=== PATIENT | female | born 1985 | race Caucasian/White ===

== ENCOUNTER → 2016-06-26 | Outpatient (CLI) | payer OTHER | LOC: FIMAGING 13:27 | PROVIDERS: ATTEND Midwife | DX: Z32.01 Encounter for pregnancy test, result positive (principal); N93.9 Abnormal uterine and vaginal bleeding, unspecified ==

== ENCOUNTER 2017-07-31 01:03 | Inpatient (IN) | payer OTHER ==
[2017-07-31] MEDS ORDERED: EPSOM SALT 454 GM TP PRN (01:39)
[2017-07-31] MEDS ORDERED: OXYTOCIN 20 UNIT in LR 1,000 ML IV PRN (01:39)
[2017-07-31] MEDS ORDERED: TERBUTALINE SULFATE 1 MG/ML VIAL IV PRN (01:39)
[2017-07-31] MEDS ORDERED: OLIVE OIL 118 ML BTL MISC PRN (01:39)
[2017-07-31] MEDS ORDERED: LR 1,000 ML IV PRN (01:39)
[2017-07-31] MEDS ORDERED: MISOPROSTOL 200 MCG TAB PR PRN (01:39)
[2017-07-31 01:54] LABS: PLATELET COUNT 208 10^3/uL (150-400)
[2017-07-31] MEDS ORDERED: LIDOCAINE 1% 300 MG/30 ML SDV ONE (02:14)
[2017-07-31] MEDS ORDERED: OXYTOCIN 10 UNIT/ML VIAL ONE (02:15)
[2017-07-31] MEDS ORDERED: AMMONIA AROMATIC 1 EACH AMP IH ONE (02:15)
[2017-07-31] MEDS ORDERED: MISOPROSTOL 200 MCG TAB ONE (02:15)
[2017-07-31] MEDS ORDERED: OLIVE OIL 118 ML BTL ONE (02:15)
[2017-07-31] MEDS ORDERED: TERBUTALINE SULFATE 1 MG/ML VIAL ONE (02:15)
[2017-07-31] MEDS: IBUPROFEN 600 MG TAB PO PRN ×2 (02:54→10:41)
--- NOTE | 2017-07-31 03:04 | PDGENHP ---
History and Physical History and Physical: HPI: Patient is a 32 yo G 3 P1 at 39.1 weeks EGA who presents to L&D with complaints of regular painful contractions that started several hours ago. Baby has been active. She denies LOF or VB. Has had some light bloody show. EDC: 08/05/2017 which is based on LMP: 10/29/2016 which is known and consistent with Ultrasound at 9 weeks. Her is complicated by: -mild depression/anxiety- not medicated, see's a therapist, well controlled -marijuana use 1st trimester for nausea appetite- states stopped by 9 weeks Review of Systems: Constitutional: Denies any fever, chills, or fatigue HEENT: denies any visual changes, difficulty swallowing, hearing loss Cardiovascular: Denies any chest pain, palpitations, leg swelling Respiratory: denies any cough, wheezing, or shortness of breathe GI: Denies any nausea, vomiting, diarrhea, constipation : denies any dysuria, urgency, frequency, vaginal bleeding Musculoskeletal: denies any muscle or bone pain Skin: denies any rashes Neuro: denies any headache, seizures, lightheadedness, dizziness, or loss of consciousness Psychiatric: denies any depression, anxiety, or SI/HI thoughts HISTORY: Previous OB history: 03/20, ectopic 05/22 Past medical history: mild anxiety/depression -no meds, just therapy Past surgical history: none Medications: PNV Allergies (list reaction): NKDA LABS: Rh: A pos ABS: Neg Rubella: Immune HbsAg: NR HIV: NR VDRL: NR 1hr: 109 GC: Neg Chlamydia: Neg Pap: Normal GBS: neg PHYSICAL EXAM: Constitutional: WN, A&Ox3 HEENT: normocephalic atraumatic, supple Heart: RRR, no murmur Chest: CTA-B Abdomen: Soft, nontender, gravid SVE: 7-8/90/-1 BBOW Extremities: mild lower ext edema, negative jung's sign Neuro: grossly normal Psych: normal affect assessment: Reassuring FHTs, baseline 130s +accels, no decels, moderate variability Contractions: toco q 2-3 Assessment: 1) 32 yo G 3 P 2 with IUP@ 39.1 2) active labor 3) GBS neg 4) Cat 1 FHR tracing Plan: 1) Admit to L&D 2) IV, CBC, type and screen 3) intermittent monitoring per protocol 4) Diet as tolerated 5) anticipate
[2017-07-31] MEDS ORDERED: ACETAMINOPHEN 325 MG TAB PO PRN (03:05)
[2017-07-31] MEDS ORDERED: HYDROCORTISONE 0.5% CREAM TP PRN (03:05)
[2017-07-31] MEDS ORDERED: DOCUSATE SODIUM 100 MG CAP PO PRN (03:05)
[2017-07-31] MEDS ORDERED: SIMETHICONE 80 MG TAB CHEW PO PRN (03:05)
--- NOTE | 2017-07-31 03:11 | OBDEL ---
Info Type: Vaginal Presentation at Delivery: Vertex L&D Analgesia/Anesthesia Type: Local GBS+: No Intrapartum Medications: Generic Name Dose Route Start Last Admin Trade Name Freq PRN Reason Stop Dose Admin Ibuprofen 600 mg 07/31/17 01:39 07/31/17 02:54 Motrin PO 01/27/18 01:38 600 mg Q6HRS PRN Administration post , inflammation Indications for Delivery: Spontaneous Labor Vaginal Delivery - Delivery Provider Delivery Physician/CNM: Fanny Jefferson Proctoring Provider: Mary Marshall - Labor and Delivery Onset of Contractions Date: 07/30/17 Onset of Contractions Time: 21:45 Onset of Contractions Type: Spontaneous Rupture of Membranes Date: 07/31/17 Rupture of Membranes Time: 02:23 Rupture of Membranes Type: Spontaneous Amniotic Fluid Color: Clear Dilation Complete Date: 07/31/17 Dilation Complete Time: 02:21 Placenta Delivery Date: 07/31/17 Placenta Delivery Time: 02:29 Total Hours of Labor: 4 Data CHARLENE: 08/06/17 Gestational Age: 39 week(s) and 1 day(s) [place] Delivery Date: 07/31/17 Delivery Time: 02:23 Sex of Infant: Male Score (1 Min): 8 Score (5 Min): 8 ICD10 Worksheet Patient Problems: Problems Problem Status Onset Vaginal delivery Acute SROM (spontaneous rupture of membranes) Acute - ICD10 Problem Qualifiers (1) Vaginal delivery
[2017-07-31] MEDS: HYDROCODONE/APAP 5/325 TAB PO PRN ×2 (03:45→08:28)
--- NOTE | 2017-07-31 09:30 | OBPP ---
Progress Note Assessment/Plan: Assessment: 32 yo 7 hr s/p , doing well, desires homegoing today Plan: Will dc to home this afternoon. Reviewed signs of pp depression. Routine pp cares reviewed. See dc summary. 07/31/17 09:25 Subjective/ Course: 07/31/17 09:26 Doing well. Really desires going home this afternoon - has a 2.5 year old at home. Is fatigued but wants to go home. Ate breakfast. Has voided without difficulty. going well. Objective: 07/31/17 01:30 Patient ABO/Rh A POSITIVE 07/31/17 01:30 Temp Pulse Resp BP Pulse Ox 36.8 C 78 78 H 120/77 94 07/31/17 05:43 07/31/17 05:43 07/31/17 05:43 07/31/17 05:43 07/31/17 05:43 gen - pleasant, NAD abd - soft, fundus firm and NT u-3 ext - calves NT, trace edema Uterine Position/Fundal Height: Umbilicus -2 Uterine Tone: Firm
--- NOTE | 2017-07-31 10:13 | OBGCSDC ---
General Delivery Information - General Info : 3 Para: 2 Abortions: 0 Type: Vaginal L&D Analgesia/Anesthesia Type: Local Admission Date: 07/31/17 Labs: Patient ABO/Rh A POSITIVE 07/31/17 01:30 Hct 38.1 % (38.0-47.0) 07/31/17 01:30 - Hospital Course Antepartum: 07/31/17 10:01 Came in and delivered without complication. : 07/31/17 09:26 Doing well. Really desires going home this afternoon - has a 2.5 year old at home. Is fatigued but wants to go home. Ate breakfast. Has voided without difficulty. going well. Vaginal - Delivery Provider Delivery Physician/CNM: Fanny Jefferson - Diagnosis Labor: Spontaneous Rupture of Membranes Type: Spontaneous Amniotic Fluid Color: Clear Conesus Data CHARLENE: 08/06/17 Gestational Age: 39 week(s) and 1 day(s) Ramsey Delivery Date: 07/31/17 Delivery Time: 02:23 Sex of : Male Weight (gm): 3290 g Score (1 Min): 8 Score (5 Min): 8 Discharge Information - Discharge Information Prescriptions: Hydrocodone/APAP 5/325 [Etoile 5/325 (*)] 1 - 2 tab PO Q4HRS PRN #10 tab PRN Reason: Pain, Moderate Condition: Good
[2017-07-31 12:49] VITALS: BP 117/71
== END 2017-07-31 15:11 | disposition home or self-care (01) | DRG 775 ==
LOC: FLD 01:03 → OBSVTOIN 01:39 → FOB 05:12
PROVIDERS: ADMIT Advanced Practice Midwife; ATTEND Advanced Practice Midwife
PROC: 10E0XZZ Delivery of Products of Conception, External Approach (ICD-10-PCS; principal; 2017-07-31)
DX: O80 Encounter for full-term uncomplicated delivery (principal); Z37.0 Single live birth; Z3A.39 39 weeks gestation of pregnancy
CPT/HCPCS: J2590; J3105